=== PATIENT | female | born 1990 | race Caucasian/White ===

== ENCOUNTER 2017-06-27 20:00 | Emergency (ER) | payer OTHER ==
[2017-06-27] MEDS ORDERED: ONDANSETRON 4 MG/2 ML VIAL IVP ONE (20:30)
[2017-06-27] MEDS ORDERED: NS 1,000 ML IV ONE (20:30)
[2017-06-27] MEDS ORDERED: LORazepam 2 MG/ML INJ IVP ONE (20:30)
--- NOTE | 2017-06-27 20:32 | EDPHY ---
H & P Stated Complaint: Shakey, vomiting blood - Personal History LMP (Females 10-55): 15-21 Days Ago Current Tetanus/Diphtheria Vaccine: Unsure Current Tetanus Diphtheria and Acellular Pertussis (TDAP): Unsure - Medical/Surgical History Hx Asthma: Yes Hx Chronic Respiratory Disease: No Hx Diabetes: No Hx Cardiac Disease: No Hx Renal Disease: No Hx Cirrhosis: No Hx Alcoholism: No Hx HIV/AIDS: No Hx Splenectomy or Spleen Trauma: No Other PMH: Asthma - Social History Smoking Status: Never smoked Time Seen by Provider: 06/27/17 20:14 HPI/ROS: CHIEF COMPLAINT: Nausea vomiting epigastric pain post alcohol use HISTORY OF PRESENT ILLNESS: 27-year-old female states that she went to a concert last evening drank heavy amounts of alcohol, woke this morning feeling hung over, vomiting continued throughout the day. Symptoms also include anxiety , hyperventilation She was at dinner this evening also notes tolerate oral intake. She vomited notes a small streak of bloody appearance. She is also complaining of epigastric discomfort. Bowel movements normal. No abdominal trauma. No fever or chills. No seizure. PRIMARY CARE PROVIDER: REVIEW OF SYSTEMS: A ten point review of systems was performed and is negative with the exception of the items mentioned in the HPI PAST MEDICAL & SURGICAL HISTORY: No history of abdominal surgery SOCIAL HISTORY: Positive for alcohol use last evening PHYSICAL EXAM (Prior to examination, patient consented to physical exam, hands were washed and my usual and customary physical exam procedures followed) 1) GENERAL: Well-developed, well-nourished, alert and oriented. Appears to be in no acute distress. 2) HEAD: Normocephalic, atraumatic 3) HEENT: Pupils equal, round, reactive to light bilaterally. Sclera anicteric. Nasopharynx, oropharynx, clear, no lesions. Dry mucous membranes 4) NECK: Full range of motion, no meningeal signs. 5) LUNGS: Clear auscultation bilaterally, no wheezes, no rhonchi, no retractions. 6) HEART: Regular rate and rhythm, no murmur, no heave, no gallop. 7) ABDOMEN: tender to palpation epigastrium, negative McBurney's, negative Combs's, negative Rovsing's, negative peritoneal sign, 8) MUSCULOSKELETAL: Moving all extremities, no focal areas of tenderness, no obvious trauma. No peripheral edema or discoloration. 9) BACK: No CVA tenderness, no midline vertebral tenderness, no fluctuance, no step-off, no obvious trauma, no visual or palpable abnormality. 10) SKIN: No rash, no petechiae. 11) Psychiatric: Patient is oriented X 3, there is no agitation. DIFFERENTIAL DIAGNOSIS: In no particular order, including but not limited to acute alcohol withdrawal, biliary colic, cholecystitis, peptic ulcer disease, pancreatitis, and gastroenteritis. This is a partial list of diagnoses considered. These considerations are based on history, physical exam, past history and reassessment. (Emre Martin) Constitutional: Initial Vital Signs Temperature (C) 36.6 C 06/27/17 20:05 Heart Rate 105 H 06/27/17 20:05 Respiratory Rate 16 06/27/17 20:05 Blood Pressure 120/80 06/27/17 20:05 O2 Sat (%) 99 06/27/17 20:05 O2 Delivery Mode Room Air Allergies/Adverse Reactions: No Known Allergies Allergy (Verified 09/09/12 22:08) Home Medications: Medication Instructions Recorded NO HOME MEDICATIONS 11/05/10 Medical Decision Making ED Course/Re-evaluation: 9:21 p.m.: Re-evaluation. She is feeling improvement. Will attempt oral fluid challenge. 9:38 p.m.: Patient re-evaluated, she has tolerated oral fluid intake. She appears significantly improved, she is smiling. Re-examined her abdomen which is soft no guarding or rebound. Discussed her laboratory studies. Doubt acute pancreatitis. She is noted to have an elevated anion gap which is consistent with alcoholic ketoacidosis. At this time as the patient is otherwise healthy, tolerating oral intake, has received IV hydration, I do not think that hospitalization is indicated. Recommend continued hydration. Given take-home pack of Zofran. Recommend caution with alcohol use in the future. She feels comfortable being discharged. Usual and customary discharge precautions and instructions provided. Discussed case with secondary supervising physician Dr. Ramon Dykes in the ER. (Emre Martin) I did not see this patient while she was in the emergency department. However her care was discussed with the PA while the patient was in the department. I agree with treatment plan and management (Ramon Dykes) - Data Points Laboratory Results: Laboratory Results 06/27/17 20:55 06/27/17 20:55 Medications Given: Discontinued Medications Sodium Chloride (Ns) 1,000 mls @ 0 mls/hr IV ONCE ONE PRN Reason: Wide Open Stop: 06/27/17 20:31 Last Admin: 06/27/17 21:01 Dose: 1,000 mls Lorazepam (Ativan Injection) 1 mg IVP EDNOW ONE Stop: 06/27/17 20:31 Last Admin: 06/27/17 21:02 Dose: 1 mg Ondansetron HCl (Zofran) 4 mg IVP EDNOW ONE Stop: 06/27/17 20:31 Last Admin: 06/27/17 21:02 Dose: 4 mg Ondansetron HCl (Zofran Odt 4 Mg Prepack#2) 1 btl TAKEHOME EDNOW ONE Stop: 06/27/17 21:43 Last Admin: 06/27/17 21:50 Dose: 1 btl Departure - Departure Disposition: Home, Routine, Self-Care Clinical Impression: Nausea & vomiting, Volume depletion, Alcohol withdrawal Condition: Good Instructions: Ondansetron (By mouth), Acute Nausea and Vomiting (ED), Alcohol Withdrawal (ED) Additional Instructions: Please exercise caution with alcohol use in the future. Return to the ER if you are unable to keep food or fluid down. Referrals: Andie Coy MD [Medical Doctor] - 1-2 days without fail
[2017-06-27 21:07] LABS: PLATELET COUNT 387 10^3/uL (150-400)
[2017-06-27] MEDS ORDERED: ONDANSETRON 4MG PREPACK#2 BTL TAKEHOME ONE (21:42)
[2017-06-27 21:57] VITALS: BP 103/59
== END 2017-06-27 21:55 | disposition home or self-care (01) ==
DX: R11.2 Nausea with vomiting, unspecified (principal); F10.230 Alcohol dependence with withdrawal, uncomplicated; E86.9 Volume depletion, unspecified; J45.909 Unspecified asthma, uncomplicated
CPT/HCPCS: 96374; J2060; J2405